=== PATIENT | female | born 1965 | race African-American/Black ===

== ENCOUNTER 2022-03-15 11:45 | Observation (INO) | payer BC, OTHER ==
[2022-03-15 12:03] VITALS: BP 122/82; PULSE 71; TEMP 97.9; BMI 35.7
[2022-03-15] MEDS ORDERED: LACTATED RINGERS SOLUTION 1000 ML INFUS.BAG IV ONE (12:46)
[2022-03-15 13:37] LABS: BASO % 0.4 % (0-2.0); EOS % 2.8 % (0-4.5); HEMATOCRIT 40.5 % (32.4-45.2); HEMOGLOBIN 13.8 GM/dL (10.7-15.3); LYMPH % 45.6 % (8-40); MCH 30.7 pg (25.7-33.7); MEAN CELL VOLUME 90.4 fl (80-96); MONO % 9.2 % (3.8-10.2); PLATELET COUNT 140 10^3/uL (134-434); RBC 4.49 M/mm3 (3.60-5.2); RDW 13.3 % (11.6-15.6); WHITE BLOOD COUNT 3.1 K/mm3 (4.0-10.0)
[2022-03-15 13:39] LABS: CALCIUM 9.4 mg/dL (8.5-10.1)
[2022-03-15 13:40] LABS: ALBUMIN 3.8 g/dl (3.4-5.0); BLOOD UREA NITROGEN 8.6 mg/dL (7-18); MAGNESIUM 2.2 mg/dL (1.8-2.4)
[2022-03-15 13:42] LABS: INR 1.02 (0.83-1.09); PROTHROMBIN TIME (PATIENT) 11.7 SEC (9.7-13.0)
[2022-03-15 13:43] LABS: CREATININE 0.9 mg/dL (0.55-1.3)
[2022-03-15 13:44] LABS: TOT PROT 8.4 g/dl (6.4-8.2)
[2022-03-15 13:45] LABS: ACTIVATED PTT 28.7 SECONDS (25.2-36.5); BILIRUBIN,TOTAL 0.5 mg/dL (0.2-1)
[2022-03-15 15:46] LABS: URINE APPEARANCE CLEAR; URINE BILIRUBIN NEGATIVE (NEGATIVE); URINE COLOR YELLOW; URINE GLUCOSE (UA) NEGATIVE (NEGATIVE); URINE KETONE NEGATIVE (NEGATIVE); URINE LEUK ESTERASE NEGATIVE (NEGATIVE); URINE NITRITE NEGATIVE (NEGATIVE); URINE PROTEIN NEGATIVE (NEGATIVE); URINE UROBILINOGEN 0.2 mg/dL (0.2-1.0)
== END 2022-03-15 17:51 | disposition home or self-care (01) ==
LOC: JER 11:45 → JERBED 15:06
PROVIDERS: ADMIT Internal Medicine; ATTEND Internal Medicine
PROC: 3E0337Z Introduction of Electrolytic and Water Balance Substance into Peripheral Vein, Percutaneous Approach (ICD-10-PCS; principal; 2022-03-15)
DX: R55 Syncope and collapse (principal); M35.00 Sjogren syndrome, unspecified; E66.8 Other obesity; Z68.35 Body mass index [BMI] 35.0-35.9, adult
CPT/HCPCS: 36415; 70450-TC; 71046-TC-FY; 80053; 81003; 83735; 84484; 85025; 85610; 85730; 87086; 87186; 93005; 93010; 96360; 99285-25; C9803-CS; G0378; U0003; U0005